=== PATIENT | female | born 1995 | race Two or more races ===

== ENCOUNTER 2025-09-06 19:12 | Emergency (ER) | payer OTHER ==
[~2025-09-06] VITALS: Ht 149.9 cm; Wt 93.8 kg
[2025-09-06 19:24] VITALS: BP 131/74; PULSE 16; RESP 90; TEMP 97.2; O2SAT 97
--- NOTE | 2025-09-06 20:45 | ED.PDOC ---
History of Present Illness(SKN HPI Comments 30-YEAR-OLD FEMALE PRESENTS TO THE ED CHIEF COMPLAINT BIT BY HER HORSE, LEFT FOREARM. NUMBNESS AND TINGLING TO FINGERS. SWELLING TO WRIST AREA, ABRASION. PATIENT REPORTS POSSIBLY . FEVER, CHILLS, NAUSEA, VOMITING, ABDOMINAL PAIN OR ABDOMINAL CRAMPING OR VAGINAL SPOTTING/BLEEDING. Chief Complaint: Animal Bite Time Seen by MD: 19:19 History of Present Illness: Nurses Notes, Medications, Allergies Information Source: Patient Mode of Arrival: Ambulatory All Other Systems: Reviewed and Negative (SEE HPI) Physical Exam General Appearance: No Apparent Distress, Normal HEENT: Pharynx Normal Neck: Full Range of Motion, Non-Tender Respiratory: Lungs Clear, No Respiratory Distress, Normal Breath Sounds Cardiovascular: No Murmur, No Gallop, Normal Peripheral Pulses, Regular Rate/Rhythm Breast Exam: Deferred Gastrointestinal: No Organomegaly, Non Tender, No Pulsatile Mass, Normal Bowel Sounds, Soft Genitalia: Deferred Pelvic: Deferred Rectal: Deferred Extremities: Normal capillary refill, Normal range of motion, Non-tender, No pedal edema Musculoskeletal : Apperance: Normal Neurologic: Alert, No Motor Deficits, Normal Affect, Normal Mood, No Sensory Deficits Cerebellar Function: Normal Reflexes: NOT DONE Skin: Dry, Normal Color, Warm, Wounds (MODERATE EDEMA LEFT DISTAL FOREARM AND WRIST WITH NOTED FACIAL ABRASIONS OR ERYTHEMA NO NOTED OBVIOUS FOREIGN BODY STRENGTH SENSORY MOTION INTACT POSITIVE RADIAL PULSE) Lymphatic: No Adenopathy Was a procedure done? Was a procedure done?: No Differential Diagnosis (INTG) Differential Diagnosis: Contusion, Fracture, Puncture Wound X-Ray, Labs, Meds, VS Vital Signs Date Time Temp Pulse Resp B/P (MAP) Pulse Ox O2 Delivery O2 Flow Rate FiO2 09/06/25 19:24 97.2 16 90 131/74 97 97.2 09/06/25 19:24 Room Air Lab Test 09/06/25 19:31 Range/Units Urine Test Negative Negative X-Ray, Labs, Meds, VS Comment X-RAY SHOWS NO ACUTE FRACTURES FOREIGN BODY OR DISLOCATIONS. PATIENT GIVEN TETANUS. URINE NEGATIVE. SCRIPT TRIAL OF AUGMENTIN. ADVISED TAKE MEDICATIONS PRESCRIBED. ADVISED ON RICE. ADVISED TO FOLLOW UP WITH PCP IN 2-3 DAYS NECESSARY ER RETURN PRECAUTIONS GIVEN PATIENT INDICATES UNDERSTANDING AGREES WITH DISCHARGE PLAN OF CARE. Images Reviewed?: Images reviewed and evaluated by me Time of 1ST Reevaluation: 19:19 Reevaluation 1ST: Unchanged Time of 2ND Reevaluation: 21:24 Reevaluation 2ND: Improved Patient Education/Counseling: Diagnosis, Treatment, Need For Follow Up Family Education/Counseling: No Family Present SEPSIS Sepsis Screen Date sepsis recognized/suspect: Sep 06, 2025 Time Sepsis recognized/suspect: 1926 Recent Procedure: No On Antibiotic Therapy: No Respiratory Rate >20: No Heart Rate >90: No Temp<36 C (96.8 F) or >38.3 C: No SBP <90 or MAP <65 mmHG: No New Acute Mental Status Change: No Is the patient on CPAP, BIPAP,: No Physician Orders L Forearm Xray (09/06/25 20:45) Vital Signs Date Time Temp Pulse Resp B/P (MAP) Pulse Ox O2 Delivery O2 Flow Rate FiO2 09/06/25 19:24 97.2 16 90 131/74 97 97.2 09/06/25 19:24 Room Air Departure 1 Departure Time of Disposition: 21:24 Impression: Primary Impression: Horse bite Qualified Codes: W55.11XA - Bitten by horse, initial encounter Disposition: HOME / SELF CARE / HOMELESS Condition: Stable e-Prescriptions Ibuprofen (Ibuprofen) 800 Mg Tab 800 MG PO Q8HP PRN for 6 Days, #18 TAB Prov: KEENAN DÍAZ 09/06/25 Amoxicillin & Pot Clavulanate (AUGMENTIN TABLET) 875 Mg Tb 875 MG PO BID for 7 Days, #14 TAB Prov: KEENAN DÍAZ 09/06/25 Discharged With: Self Critical Care Note Critical Care Time?: No Stability Stability form required: KEENAN Alarcon Sep 06, 2025 20:45
--- NOTE | 2025-09-06 21:21 | DVH ---
CLINICAL INDICATION: LEFT FOREARM BIT BY HORSE + EDEMA TECHNIQUE: 2 views XY L FOREARM XRAY Comparison: None FINDINGS: No acute fracture. The elbow and wrist joints are congruent. Soft tissue swelling at the radial aspect of the distal forearm. No radiopaque foreign body or gas. IMPRESSION: 1. Distal soft tissue swelling without acute osseous abnormality of the left forearm.
[2025-09-06] MEDS ORDERED: AUG875T PO (21:26)
[2025-09-06] MEDS ORDERED: IBUP-1456 PO (21:27)
[2025-09-06] MEDS: TETANUS-DIPTH-ACEL PERTUSSIS 0.5ML SYR Tdap IM ONE (21:35)
== END 2025-09-06 21:40 | disposition home or self-care (01) ==
LOC: ER 19:12
DX: M79.632 Pain in left forearm (principal); R60.0 Localized edema; W55.11XA Bitten by horse, initial encounter; Y93.89 Activity, other specified; Y92.89 Other specified places as the place of occurrence of the external cause; Y99.8 Other external cause status
CPT/HCPCS: 73090; 81025; 90471; 90715